=== PATIENT | female | born 1950 | race Caucasian/White ===

== ENCOUNTER → 2020-05-01 | Outpatient (CLI) | payer MEDICARE ==
--- NOTE | 2020-05-14 15:19 | REP ---
THREE PHASE BONE SCAN OF THE LUMBAR SPINE HISTORY: Low back pain. No correlative imaging is available. TECHNIQUE: 20.3 mCi of Technetium-99m MDP is injected and standard three phase imaging is acquired of the trunk lumbar spine region. FINDINGS: Anterior and posterior flow study is normal. Blood pool images demonstrate genitourinary uptake as expected and normal soft tissue and vascular uptake. Delayed scan images demonstrate a horizontally oriented area of increased uptake in the upper lumbar spine at what appears to be the L1-L2 disc level consistent with degenerative disc disease. There is mild increased discogenic uptake at the lower thoracic spine levels. No other abnormal lumbar spine uptake is seen. Mild degenerative uptake is seen in the hips, left more so than right. Bilaterally renal and urinary bladder uptake is seen. IMPRESSION: Degenerative spondylosis pattern of increased uptake in the upper lumbar spine and lower thoracic spine. Most pronounced at what appears to be L1-2. MTDD
== END ==
LOC: M RAD 10:23
PROVIDERS: ATTEND Orthopaedic Surgery
DX: M54.5 Low back pain (principal); M47.817 Spondylosis without myelopathy or radiculopathy, lumbosacral region
CPT/HCPCS: 78315; A9503

== ENCOUNTER → 2020-06-11 | Outpatient (CLI) | payer MEDICARE ==
--- NOTE | 2020-06-13 12:51 | DEXA ---
AP SPINE L1 - L4 1.176 -0.1 1.5 LT FEMUR TOTAL 1.015 0.1 1.5 LT NECK 1.040 0.0 1.7 RT FEMUR TOTAL 0.999 -0.1 1.4 RT NECK 1.001 -0.3 1.4 TOTAL BODY TOTAL OTHER COMMENTS: Normal bone densitometry of the spine and hips. FOLLOW-UP: Recommendation for the next bone density exam: 5 years. ANABELA
== END ==
LOC: M WHC 11:37
PROVIDERS: ATTEND Orthopaedic Surgery
DX: S32.010D Wedge compression fracture of first lumbar vertebra, subsequent encounter for fracture with routine healing (principal); X58.XXXA Exposure to other specified factors, initial encounter; Y92.9 Unspecified place or not applicable; Y93.9 Activity, unspecified; Y99.9 Unspecified external cause status

== ENCOUNTER → 2025-05-29 | Outpatient (CLI) | payer MEDICARE | LOC: M SLEEP 20:00 | PROVIDERS: ATTEND Physician Assistant | DX: R40.0 Somnolence (principal) ==